=== PATIENT | female | born 1955 | race Caucasian/White ===

== ENCOUNTER 2024-04-20 05:25 | Day surgery (SDC) | payer MEDICARE, BC ==
[2024-04-16 15:09] LABS: BASOPHILS % (AUTO) 0.9 % (0-1); EOSINOPHILS # (AUTO) 0.1 X10'3 (0-0.9); EOSINOPHILS % (AUTO) 2.7 % (0-6); HEMATOCRIT 40.4 % (35.0-45.0); HEMOGLOBIN 13.4 g/dl (12.0-16.0); LYMPHOCYTES # (AUTO) 1.3 X10'3 (1.1-4.8); LYMPHOCYTES % (AUTO) 24.8 % (21-51); MEAN CORPUSCULAR HEMOGLOBIN 29.3 PG (27.0-31.0); MEAN CORPUSCULAR HGB CONC 33.1 g/dL (33.0-36.5); MEAN CORPUSCULAR VOLUME 88.5 FL (78-98); MEAN PLATELET VOLUME 8.7 FL (7.4-10.4); MONOCYTES # (AUTO) 0.5 X10'3 (0-0.9); MONOCYTES % (AUTO) 9.4 % (2-12); NEUTROPHILS # (AUTO) 3.1 X10'3 (1.8-7.7); NEUTROPHILS % (AUTO) 62.2 % (42-75); PLATELET COUNT 246 X10'3 (140-440); RED BLOOD COUNT 4.56 X10'6 (4.20-5.60); RED CELL DISTRIBUTION WIDTH 13.1 % (11.5-14.5); WHITE BLOOD COUNT 5.1 X10'3 (4.5-11.0)
[2024-04-16 15:15] LABS: ALANINE AMINOTRANSFERASE 30 U/L (12-78); ALBUMIN 3.6 G/DL (3.4-5.0); ALKALINE PHOSPHATASE 60 IU/L (46-116); ANION GAP 4 (8-16); APTT 31 SECONDS (22-32); ASPARTATE AMINO TRANSFERASE 17 U/L (10-37); BILIRUBIN,TOTAL 0.3 MG/DL (0.1-1.0); BLOOD UREA NITROGEN 14 MG/DL (7-18); BUN/CREATININE RATIO 16.1 (10.0-20.0); CALCIUM 8.9 MG/DL (8.5-10.1); CHLORIDE 107 MMOL/L (99-107); CREATININE 0.87 MG/DL (0.40-0.90); GLUCOSE 95 MG/DL (70-104); POTASSIUM 4.1 MMOL/L (3.5-5.1); PROTHROMBIN TIME 10.2 SECONDS (9.0-12.0); SODIUM 140 MMOL/L (135-145); TOTAL CARBON DIOXIDE 28.6 MMOL/L (24-32); TOTAL PROTEIN 7.1 G/DL (6.4-8.2); eGFR 64 ML/MIN
[2024-04-20] VITALS (12 sets, daily range): BP systolic 124–158; BP diastolic 74–78; PULSE 63–78; RESP 12–16; TEMP 97.8; O2SAT 91–100
[~2024-04-20] VITALS: Ht 154.9 cm; Wt 75.3 kg
[~2024-04-20 05:25] MED LIST: LEVO88TA7 PO; METO-384 PO; ROSU20TA98 PO; SERT-433 PO
[2024-04-20] MEDS ORDERED: famotidine 20mg tablet PO ONE (05:30)
[2024-04-20] MEDS ORDERED: ringers solution, lacted 1,000 ML IV SCH ×2 (05:30→07:20)
[2024-04-20] MEDS: ceFAZolin 2gm in dextrose, iso 50 ML IV ONE (05:41)
[2024-04-20] MEDS: DOCUMENT DATE & TIME OF BETA-BLOCKER PO ONE (05:57)
[2024-04-20] MEDS ORDERED: BUPIVAcaine/PF 2.5mg/ml (0.25%) 10ml vial ONE (06:41)
[2024-04-20] MEDS ORDERED: LIDOcaine 1% (10mg/ml)w/preservative inj. 20ml MDV ONE (06:41)
[2024-04-20] MEDS ORDERED: fentaNYL/PF 50MCG/1 ML 2ML syringe ONE (07:14)
[2024-04-20] MEDS ORDERED: midazolam 1 mg/ML 2ml injection ONE (07:14)
[2024-04-20] MEDS ORDERED: propofol inj 20 ML IV ONE (07:16)
[2024-04-20] MEDS ORDERED: LIDOcaine 2% (20mg/ml) 5ml vial ONE (07:16)
[2024-04-20] MEDS ORDERED: dexamethasone sod phosphate 4mg/ml inj. ONE (07:16)
[2024-04-20] MEDS ORDERED: ondansetron/PF 4mg/2ml inj ONE (07:16)
[2024-04-20] MEDS ORDERED: sevoflurane 250ml liquid IH ONE (07:17)
[2024-04-20] MEDS ORDERED: labetalol 20mg/4ml (5mg/ml) syringe IV PRN (07:20)
[2024-04-20] MEDS ORDERED: morphine 2 MG/ML inj. syringe IV PRN (07:20)
[2024-04-20] MEDS ORDERED: morphine 4 MG/ML inj SYRINge IV PRN (07:20)
[2024-04-20] MEDS ORDERED: proCHLORperazine 10 MG/2 ml inj IV PRN (07:20)
[2024-04-20] MEDS ORDERED: meperidine/PF 25mg/ml syringe IV PRN ×3 (07:20)
[2024-04-20] MEDS ORDERED: enalaprilat dihydrate 2.5mg/2ml vial IV PRN (07:20)
[2024-04-20] MEDS ORDERED: ondansetron/PF 4mg/2ml inj IV PRN (07:20)
[2024-04-20] MEDS ORDERED: acetaminophen 1,000mg/100ml IV 100 ML IV ONE (07:47)
[2024-04-20] MEDS ORDERED: meperidine/PF 25mg/ml syringe ONE (07:54)
== END 2024-04-20 10:32 | disposition home or self-care (01) ==
LOC: PAS 05:25
PROVIDERS: ATTEND Surgery
DX: R92.8 Other abnormal and inconclusive findings on diagnostic imaging of breast (principal); D24.2 Benign neoplasm of left breast; N60.12 Diffuse cystic mastopathy of left breast; I49.3 Ventricular premature depolarization; I10 Essential (primary) hypertension; E03.9 Hypothyroidism, unspecified; E66.9 Obesity, unspecified; Z87.891 Personal history of nicotine dependence; Z79.890 Hormone replacement therapy; Z79.899 Other long term (current) drug therapy; Z90.710 Acquired absence of both cervix and uterus
CPT/HCPCS: 19301; 36415; 76098; 80053; 82948; 85025; 85610; 85730; 93005; A4215; A4615; A4618; A6402; J0131; J0690; J1100; J2003; J2175; J2250; J2405; J2704; J3010; J3490; J7030; J7120; Z7506; Z7508; Z7512; Z7610; 88307; A6449